=== PATIENT | female | born 1990 | race Two or more races ===

== ENCOUNTER 2016-12-07 14:10 | Emergency (ER) | payer MEDICAID, OTHER ==
[2016-12-07 14:32] VITALS: BP 109/75; PULSE 75; RESP 12; TEMP 98.4; O2SAT 97
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
== END 2016-12-07 15:58 | disposition home or self-care (01) ==
LOC: CED 14:10
DX: S06.0X0A Concussion without loss of consciousness, initial encounter (principal); W22.8XXA Striking against or struck by other objects, initial encounter; Z87.891 Personal history of nicotine dependence
CPT/HCPCS: G0463-PO